=== PATIENT | male | born 1970 | race Caucasian/White ===

== ENCOUNTER 2020-11-03 15:26 | Inpatient (IN) | payer BC ==
[2020-11-03 17:51] LABS: Basophils % 0.8 % (0-1.3); Lymphocytes % 21.5 % (15.3-44.8); MPV 7.6 fL (7.6-11.3); RBC Red Blood Cell Count 4.55 M/uL (4.33-5.43)
[2020-11-03 18:15] LABS: Albumin 4.3 g/dL (3.4-5.0); Bilirubin Direct 0.1 mg/dL (0-0.2); Bilirubin Total 0.7 mg/dL (0.2-1.0); Potassium 4.2 mmol/L (3.5-5.1); Protein, Total 8.2 g/dL (6.4-8.2)
--- NOTE | 2020-11-03 18:52 | RAD REPORT ---
EXAM DESCRIPTION: CTAbdomen Pelvis W Contrast - 11/03/2020 6:41 pm CLINICAL HISTORY: Abdominal pain. ABD PAIN COMPARISON: No comparisons TECHNIQUE: Biphasic CT imaging of the abdomen and pelvis was performed with 100 ml non-ionic IV cont rast. All CT scans are performed using dose optimization technique as appropriate and may include automated exposure control or mA/KV adjustment according to patient size. FINDINGS: The lung bases are clear.Small hiatal hernia. The liver demonstrates diffuse fatty infiltration. The spleen, pancreas, adrenal glands and kidneys a re within normal limits. No bowel obstruction, free air, free fluid or abscess. There is a 4.5 x 3.0 cm umbilical hernia a loo p of small intestine. There is Mild fluid in the hernia sac. The appendix is normal. No evidence of significant lymphadenopathy. No suspicious bony findings. IMPRESSION: Umbilical hernia containing a loop of small intestine without bowel obstruction. There m ay be a component of incarceration present as slight fluid is present in the hernia sac. Diffuse fatty liver.
--- NOTE | 2020-11-03 19:37 | ER ---
Nurse's Notes [facility] Name: Howard Velasquez Age: 50 yrs Sex: Male : 1970 Arrival Date: 11/03/2020 Time: 15:27 Bed 24 Private MD: Diagnosis: Lower abdominal pain, unspecified Presentation: 11/03 16:04 Chief complaint: Patient states: right sided abd pian and nausea started 11 today, no iw vomiting or diarrhea, sharp constant pain, no urinary s/s. Coronavirus screen: At this time, the client does not indicate any symptoms associated with coronavirus-19. Ebola Screen: Patient negative for fever greater than or equal to 101.5 degrees Fahrenheit, and additional compatible Ebola Virus Disease symptoms Patient denies exposure to infectious person. Patient denies travel to an Ebola-affected area in the 21 days before illness onset. No symptoms or risks identified at this time. Initial Sepsis Screen: Does the patient meet any 2 criteria? No. Patient's initial sepsis screen is negative. Does the patient have a suspected source of infection? No. Patient's initial sepsis screen is negative. Risk Assessment: Do you want to hurt yourself or someone else? Patient reports no desire to harm self or others. Onset of symptoms was November 03, 2020. 16:04 Method Of Arrival: Ambulatory iw 16:04 Acuity: TAMARA 3 iw Historical: - Allergies: 16:06 No Known Allergies; iw - Home Meds: 16:06 Lisinopril Oral once daily [Active]; beta karen [Active]; unknown BP med [Active]; iw - PMHx: 16:06 Hypertension; Asthma; iw - PSHx: 16:06 None; iw - Immunization history:: Adult Immunizations not up to date. - Social history:: Smoking status: Patient denies any tobacco usage or history of. Screenin:44 Abuse screen: Denies threats or abuse. Nutritional screening: No deficits noted. tw2 Tuberculosis screening: No symptoms or risk factors identified. Fall Risk None identified. Assessment: 17:30 General: Appears comfortable, Behavior is calm, cooperative. Pain: Complains of pain in aa5 right lower quadrant Pain currently is 6 out of 10 on a pain scale. Quality of pain is described as sharp, Is continuous. Neuro: Level of Consciousness is awake, alert, obeys commands, Oriented to person, place, time, situation. Cardiovascular: Patient's skin is warm and dry. Respiratory: Airway is patent Respiratory effort is even, unlabored, Respiratory pattern is regular, symmetrical. GI: Abdomen is round non-distended, Bowel sounds present X 4 quads. Abdomen is tender to palpation in right lower quadrant Reports nausea, Patient currently denies diarrhea, vomiting. : No signs and/or symptoms were reported regarding the genitourinary system. EENT: No signs and/or symptoms were reported regarding the EENT system. Derm: Skin is pink, warm \T\ dry. Musculoskeletal: Range of motion: intact in all extremities. 17:45 Reassessment: Pt notified of wait time for CT scan. . aa5 18:40 Reassessment: Pt at CT . aa5 19:00 Reassessment: Patient appears in no apparent distress at this time. Patient and/or jb4 family updated on plan of care and expected duration. Pain level reassessed. Patient is alert, oriented x 3, equal unlabored respirations, skin warm/dry/pink. 20:00 Reassessment: Patient appears in no apparent distress at this time. Patient and/or jb4 family updated on plan of care and expected duration. Pain level reassessed. Patient is alert, oriented x 3, equal unlabored respirations, skin warm/dry/pink. 21:00 Reassessment: Patient appears in no apparent distress at this time. Patient and/or jb4 family updated on plan of care and expected duration. Pain level reassessed. Patient is alert, oriented x 3, equal unlabored respirations, skin warm/dry/pink. Pt admitted to ER hold. Vital Signs: 16:04 BP 133 / 88; Pulse 70; Resp 16; Temp 97.9; Pulse Ox 97% on R/A; Weight 115.67 kg; iw Height 5 ft. 8 in. (172.72 cm); Pain 6/10; 18:00 BP 139 / 82; Pulse 69; Resp 16 S; Pulse Ox 96% ; aa5 19:00 BP 125 / 85; Pulse 64; Resp 16; Pulse Ox 97% on R/A; jb4 20:00 BP 135 / 75; Pulse 66; Resp 18; Pulse Ox 95% on R/A; jb4 16:04 Body Mass Index 38.77 (115.67 kg, 172.72 cm) ED Course: 15:27 Patient arrived in ED. am2 16:06 Triage completed. iw 16:07 Arm band placed on. iw 16:56 Bed in low position. Call light in reach. Adult w/ patient. tw2 16:58 Haresh Bennett PA is PHCP. m 16:58 David Shaffer MD is Attending Physician. jmm 17:30 Patient has correct armband on for positive identification. Placed in gown. Bed in low aa5 position. Call light in reach. Adult w/ patient. 17:44 Inserted saline lock: 20 gauge in right antecubital area, using aseptic technique. tw2 Blood collected. 17:47 Saadia King, RN is Primary Nurse. aa5 18:41 CT Abd/Pelvis - IV Contrast Only In Process Unspecified. EDMS 19:00 Report given to Sebas Sanford RN. aa5 19:36 Darrell Mallory is Hospitalizing Provider. [facility] 21:00 No provider procedures requiring assistance completed. Patient admitted, IV remains in jb4 place. Administered Medications: 19:35 Drug: Cipro (ciprofloxacin) 400 mg Volume: 200 ml; Route: IVPB; Infused Over: 60 mins; jb4 Site: right antecubital; 20:35 Follow up: Response: No adverse reaction; IV Status: Completed infusion; IV Intake: jb4 200ml 19:35 Drug: Flagyl (metroNIDAZOLE) 500 mg Volume: 100 ml; Route: IVPB; Rate: 200 ml/hr; jb4 Infused Over: 30 mins; Site: right antecubital; 20:05 Follow up: Response: No adverse reaction; IV Status: Completed infusion; IV Intake: jb4 100ml Intake: 20:05 IV: 100ml; Total: 100ml. jb4 20:35 IV: 200ml; Total: 300ml. jb4 Outcome: 19:37 Decision to Hospitalize by Provider. [facility] 21:00 Admitted to ER Hold. Please see [facility] for further documentation. jb4 21:00 Condition: stable 21:00 Discharge instructions given to patient, Instructed on the need for admit, Demonstrated understanding of instructions. 11/04 15:27 Patient left the ED. aa5 Signatures: Dispatcher [employer] EDMS Haresh Bennett PA PA jmm Williams, Irene, RN RN iw Saadia King, RN RN aa5 Lucia Morales, RN RN tw2 Sebas Poe, RN RN jb4 Marcia Morales am2
--- NOTE | 2020-11-03 19:38 | EDPHYS ---
Physician Documentation [facility] Name: Howard Velasquez Age: 50 yrs Sex: Male : 1970 Arrival Date: 11/03/2020 Time: 15:27 Bed 24 Private MD: ED Physician David Shaffer HPI: 11/03 17:34 This 50 yrs old Male presents to ER via Ambulatory with complaints of jmm Abdominal Pain - RLQ. 17:34 The patient presents with abdominal pain. Onset: The symptoms/episode began/occurred jmm gradually, today. The symptoms do not radiate. Associated signs and symptoms: Pertinent positives: nausea. The symptoms are described as achy. Modifying factors: The symptoms are alleviated by nothing. This is a 50 year old male with no chronic medical conditions that presents to the ED with complaints of right lower abdominal pain beginning approximately 1130 today. Similar episode 2 weeks ago. Historical: - Allergies: 16:06 No Known Allergies; iw - Home Meds: 16:06 Lisinopril Oral once daily [Active]; beta karen [Active]; unknown BP med [Active]; iw - PMHx: 16:06 Hypertension; Asthma; iw - PSHx: 16:06 None; iw - Immunization history:: Adult Immunizations not up to date. - Social history:: Smoking status: Patient denies any tobacco usage or history of. ROS: 17:34 Constitutional: Negative for fever, chills, and weight loss, Cardiovascular: Negative jmm for chest pain, palpitations, and edema, Respiratory: Negative for shortness of breath, cough, wheezing, and pleuritic chest pain. 17:34 All other systems are negative. Exam: 17:34 Constitutional: This is a well developed, well nourished patient who is awake, alert, jmm and in no acute distress. Head/Face: atraumatic. Eyes: EOMI, no conjunctival erythema appreciated ENT: Moist Mucus Membranes Neck: Trachea midline, Supple Chest/axilla: Normal chest wall appearance and motion. Cardiovascular: Regular rate and rhythm. No edema appreciated Respiratory: Normal respirations, no respiratory distress appreciated 17:34 Skin: General appearance color normal MS/ Extremity: Moves all extremities, no obvious deformities appreciated, no edema noted to the lower extremities Neuro: Awake and alert, normal gait Psych: Behavior is normal, Mood is normal, Patient is cooperative and pleasant 17:34 Abdomen/GI: Inspection: abdomen appears normal, Bowel sounds: normal, Palpation: moderate abdominal tenderness, in the right lower quadrant. Vital Signs: 16:04 BP 133 / 88; Pulse 70; Resp 16; Temp 97.9; Pulse Ox 97% on R/A; Weight 115.67 kg; iw Height 5 ft. 8 in. (172.72 cm); Pain 6/10; 18:00 BP 139 / 82; Pulse 69; Resp 16 S; Pulse Ox 96% ; aa5 19:00 BP 125 / 85; Pulse 64; Resp 16; Pulse Ox 97% on R/A; jb4 20:00 BP 135 / 75; Pulse 66; Resp 18; Pulse Ox 95% on R/A; jb4 16:04 Body Mass Index 38.77 (115.67 kg, 172.72 cm) iw MDM: 17:29 Patient medically screened. [facility] 19:36 Data reviewed: vital signs, nurses notes. Counseling: I had a detailed discussion with venessa the patient and/or guardian regarding: the historical points, exam findings, and any diagnostic results supporting the discharge/admit diagnosis, lab results, radiology results, the need for outpatient follow up, to return to the emergency department if symptoms worsen or persist or if there are any questions or concerns that arise at home. ED course: I discussed the patient with Momo Barron PA-C whom accepted the patient to Dr. Mallory's service. . 11/03 17:34 Order name: Basic Metabolic Panel [facility] 11/03 17:34 Order name: CBC with Diff; Complete Time: 17:55 [facility] 11/03 17:34 Order name: Hepatic Function [facility] 11/03 17:34 Order name: Lipase [facility] 11/03 20:25 Order name: SARS-COV-2 RT PCR; Complete Time: 20:25 [facility] 11/03 21:24 Order name: T4 Free [facility] 11/03 21:24 Order name: Thyroid Stimulating Hormone [facility] 11/04 05:52 Order name: CBC with Automated Diff [facility] 11/04 06:21 Order name: Comprehensive Metabolic Panel [facility] 11/04 06:21 Order name: Phosphorus [facility] 11/04 06:21 Order name: Lipid Profile [facility] 11/04 06:21 Order name: Magnesium [facility] 11/04 06:54 Order name: Hemoglobin A1c [facility] 11/03 17:34 Order name: IV Saline Lock; Complete Time: 17:42 [facility] 11/03 17:34 Order name: Labs collected and sent; Complete Time: 17:42 [facility] 11/03 17:34 Order name: CT Abd/Pelvis - IV Contrast Only; Complete Time: 18:54 [facility] 11/03 19:51 Order name: CONS Physician Consult [facility] 11/04 06:56 Order name: Urinalysis [facility] Administered Medications: 19:35 Drug: Cipro (ciprofloxacin) 400 mg Volume: 200 ml; Route: IVPB; Infused Over: 60 mins; jb4 Site: right antecubital; 20:35 Follow up: Response: No adverse reaction; IV Status: Completed infusion; IV Intake: jb4 200ml 19:35 Drug: Flagyl (metroNIDAZOLE) 500 mg Volume: 100 ml; Route: IVPB; Rate: 200 ml/hr; jb4 Infused Over: 30 mins; Site: right antecubital; 20:05 Follow up: Response: No adverse reaction; IV Status: Completed infusion; IV Intake: jb4 100ml Disposition: 11/04 17:29 Co-signature as Attending Physician, David Shaffer MD. rn Disposition: 11/03/20 19:37 Hospitalization ordered by Darrell Mallory for Observation. Preliminary diagnosis is Lower abdominal pain, unspecified. - Bed requested for [facility] ER HOLD. - Status is Observation. aa5 - Condition is Stable. - Problem is new. - Symptoms are unchanged. Signatures: Dispatcher [employer] [facility] Haresh Bennett PA PA [facility] Desirae Guillen RN RN iw Nieto, Roman, MD MD rn Calderon, Audri, RN RN aa5 Tash Walker RN RN cg Bryson, James, RN RN jb4 Corrections: (The following items were deleted from the chart) 11/03 19:42 19:03 CORONAVIRUS+MR.LAB.BRZ ordered. [facility] 20:39 19:37 Hospitalization Ordered by Darrell Mallory for Observation. Preliminary diagnosis cg is Lower abdominal pain, unspecified. Bed requested for Telemetry/MedSurg (observation). Status is Observation. Condition is Stable. Problem is new. Symptoms are unchanged. [facility] 11/04 15:27 11/03 20:39 11/03/2020 19:37 Hospitalization Ordered by Darrell Mallory for Observation. aa5 Preliminary diagnosis is Lower abdominal pain, unspecified. Bed requested for [facility] ER HOLD. Status is Observation. Condition is Stable. Problem is new. Symptoms are unchanged. cg
[2020-11-03] MEDS ORDERED: CIPROFLOXACIN 400mg IV 400 MG/200 ML BAG IV ONE (19:45)
[2020-11-03] MEDS ORDERED: METRONIDAZOLE 500mg IVPB 500 MG/100 ML BAG IV ONE (19:45)
--- NOTE | 2020-11-03 20:01 | P.HP ---
Certification for Inpatient Patient admitted to: Inpatient With expected LOS: >2 Midnights Patient will require the following post-hospital care: None Practitioner: I am a practitioner with admitting privileges, knowledge of patient current condition, hospital course, and medical plan of care. Services: Services provided to patient in accordance with Admission requirements found in Title 42 Section 412.3 of the Code of Federal Regulations <Momo Barron - Last Filed: 11/03/20 19:56> Patient History Date of Service: 11/03/20 Primary Care Provider: Blair Reason for admission: umbilical hernia History of Present Illness: Mr. Velasquez is a 50 yo male with HTN and asthma here today for 9/10 umbilical abdominal pain beginning this morning. Pain is now tolerable. He says he initially had this pain 3 weeks ago but it went away after a few hours. Pain is worse with drinking water. He reports nausea, belching. Denies vomiting, constipation. WBC 14. CT shows umbilical hernia containing a loop of small intestine without bowel obstruction, there may be a component of incarceration present as slight fluid is present in the hernia sac, diffuse fatty liver. - Past Medical/Surgical History Has patient received pneumonia vaccine in the past: No Diabetic: No -: HTN -: asthma Past Surgical History: Patient denies surgical history - Family History Mother -: Diabetes, Kidney disease Father -: Hypertension - Social History Smoking Status: Never smoker Alcohol use: No CD- Drugs: No Caffeine use: No Place of Residence: Home <Momo Barron - Last Filed: 11/03/20 19:56> Date of Service: 11/04/20 <jorge mitchell - Last Filed: 11/04/20 12:09> Review of Systems General: Unremarkable Eyes: Unremarkable ENT: Unremarkable Respiratory: Unremarkable Cardiovascular: Unremarkable Gastrointestinal: Nausea, Abdominal Pain, As per HPI Genitourinary: Unremarkable Musculoskeletal: Unremarkable Integumentary: Unremarkable Neurological: Unremarkable Lymphatics: Unremarkable <Momo Barron - Last Filed: 11/03/20 19:56> Physical Examination - Physical Exam General: Alert, In no apparent distress, Oriented x3, Cooperative HEENT: Atraumatic, Normocephalic, PERRLA, Mucous membr. moist/pink, EOMI, Sclerae nonicteric Neck: Supple, 2+ carotid pulse no bruit, JVD not distended, No Thyromegaly, No LAD Respiratory: Clear to auscultation bilaterally, Normal air movement Cardiovascular: No edema, Normal pulses, Regular rate/rhythm, Normal S1 S2, No gallops, No rubs, No murmurs Capillary refill: <2 Seconds Gastrointestinal: Normal bowel sounds, Soft and benign, Non-distended, No ascites, No rebound, No guarding, Other (mild tenderness to palpation, hernia is reducible), Tenderness Musculoskeletal: No clubbing, No swelling, No contractures, No erythema, No tenderness, No warmth Integumentary: No rashes, No breakdown, No significant lesion, No tenderness/swelling, No warmth, No cyanosis, Erythema Neurological: Normal gait, Normal speech, Normal strength at 5/5 x4 extr, Normal tone, Sensation intact, Cranial nerves 3-12 intact, Normal affect Lymphatics: No axilla or inguinal lymphadenopathy - Studies Laboratory Data (last 24 hrs) 11/03/20 17:42: WBC 14.00 H, Hgb 13.9, Hct 41.0, Plt Count 273 11/03/20 17:42: Sodium 141, Potassium 4.2, BUN 21 H, Creatinine 0.92, Glucose 125 H, Total Bilirubin 0.7, AST 26, ALT 55, Alkaline Phosphatase 82, Lipase 126 <Momo Barron - Last Filed: 11/03/20 19:56> - Studies Laboratory Data (last 24 hrs) 11/03/20 17:42: WBC 14.00 H, Hgb 13.9, Hct 41.0, Plt Count 273 11/03/20 17:42: Sodium 141, Potassium 4.2, BUN 21 H, Creatinine 0.92, Glucose 125 H, Total Bilirubin 0.7, AST 26, ALT 55, Alkaline Phosphatase 82, Lipase 126 <jorge mitchell - Last Filed: 11/04/20 12:09> Assessment and Plan - Problems (Diagnosis) (1) Hypertension Current Visit: Yes Status: Chronic Qualifiers: Hypertension type: essential hypertension Qualified Code(s): I10 - Essential (primary) hypertension (2) Asthma Current Visit: Yes Status: Chronic Qualifiers: Asthma severity: unspecified severity Asthma persistence: unspecified Asthma complication type: uncomplicated Qualified Code(s): J45.909 - Unsp ecified asthma, uncomplicated (3) Umbilical hernia Current Visit: Yes Status: Acute Qualifiers: Obstruction and gangrene presence: without obstruction or gangrene Qualified Code(s): K42.9 - Umbilical hernia without obstruction or gangrene - Plan surgery consulted, NPO, continue with cipro and flagyl blood pressure currently well controlled, will continue to monitor morphine and zofran PRN lipid panel, A1c pending albuterol inhaler PRN Discharge Plan: Home Plan to discharge in: 48 Hours - Advance Directives Does patient have a Living Will: No Does patient have a Durable POA for Healthcare: No - Code Status/Comfort Care Code Status Assessed: Yes (full code) Critical Care: No Time Spent Managing Pts Care (In Minutes): 70 <Momo Barron - Last Filed: 11/03/20 19:56> Physician Review: Patient Assessed, Agree with Above Assessment and Plan Physician Review Additional Text: Incarcerated umbilical hernia. Plan: General surgery consult. Supportive measures with-antiemetics and pain medications. <jorge mitchell - Last Filed: 11/04/20 12:09>
[2020-11-03] MEDS ORDERED: ALBUTEROL INHALER 60 PUFF/8 GM IH PRN (20:48)
[2020-11-03] MEDS ORDERED: MORPHINE 2 MG/ML SYR IV PRN (20:48)
[2020-11-03] MEDS ORDERED: ONDANSETRON 4 MG/2 ML VIAL IV PRN (20:48)
[2020-11-03] MEDS ORDERED: ACETAMINOPHEN 500 MG TAB PO PRN (20:48)
[2020-11-03 21:23] LABS: Thyroid Stimulating Hormone 1.75 uIU/mL (0.360-3.740)
[2020-11-03 21:44] VITALS: BMI 38.0
[2020-11-04] MEDS ORDERED: METRONIDAZOLE 500mg IVPB 500 MG/100 ML BAG IV SCH (01:00)
[2020-11-04] MEDS ORDERED: METRONIDAZOLE 500mg IVPB 0 MG/0 ML BAG IV ONE (03:28)
[2020-11-04 05:48] LABS: Basophils % 0.4 % (0-1.3); Hematocrit 39.1 % (39.6-49.0); Lymphocytes % 37.7 % (15.3-44.8); MPV 8.1 fL (7.6-11.3); RBC Red Blood Cell Count 4.31 M/uL (4.33-5.43)
[2020-11-04 06:20] LABS: ALT/SGPT 52 U/L (12-78); AST/SGOT 24 U/L (15-37); Albumin 3.7 g/dL (3.4-5.0); Alkaline Phosphatase 72 U/L (45-117); BUN Blood Urea Nitrogen 19 mg/dL (7-18); Bicarbonate 30 mmol/L (21-32); Bilirubin Total 1.1 mg/dL (0.2-1.0); Glucose Level 116 mg/dL (74-106); HDL Cholesterol 32 mg/dL (40-60); LDL Cholesterol, Calculated 110 (<130); Magnesium 2.4 mg/dL (1.8-2.4); Phosphorus 3.2 mg/dL (2.5-4.9); Protein, Total 7.4 g/dL (6.4-8.2); Sodium Level 140 mmol/L (136-145)
[2020-11-04 06:55] LABS: Urine Appearance CLEAR (Clear); Urine Bilirubin NEGATIVE (Negative); Urine Blood NEGATIVE (Negative); Urine Color YELLOW (Yellow); Urine Glucose NEGATIVE (Negative); Urine Protein NEGATIVE (Negative); Urine Specific Gravity >=1.030 (1.005-1.030); Urine pH 6.5 (5.0-7.0)
[2020-11-04 06:56] LABS: Urine Microscopic Reflex NO UMIC
[2020-11-04] MEDS ORDERED: CIPROFLOXACIN 400mg IV 400 MG/200 ML BAG IV SCH (09:00)
[2020-11-04] MEDS ORDERED: CIPROFLOXACIN 400mg IV 400 MG/200 ML BAG IV ONE (09:03)
[2020-11-04] MEDS ORDERED: METRONIDAZOLE 500mg IVPB 500 MG/100 ML BAG IV ONE (09:03)
[2020-11-04] MEDS ORDERED: Ringers Lactate 1,000 ML IV ONE ×2 (09:19→10:56)
[2020-11-04] MEDS ORDERED: ACETAMINOPHEN 500 MG TAB ONE (09:43)
[2020-11-04] MEDS ORDERED: MIDAZOLAM HCL 2 MG/2 ML INJ ONE ×2 (09:51→11:30)
[2020-11-04] MEDS ORDERED: propofoL 200 MG/20 ML VIAL IV ONE (09:51)
[2020-11-04] MEDS ORDERED: FENTANYL CITR 100 MCG/2 ML ONE (09:51)
[2020-11-04] MEDS ORDERED: LIDOCAINE 1% MPF 5 ML VIAL ONE (09:51)
[2020-11-04] MEDS ORDERED: ROCURONIUM 50 MG/5 ML VIAL IV ONE (09:52)
[2020-11-04] MEDS ORDERED: CELECOXIB 100 MG CAPSULE ONE (09:54)
[2020-11-04] MEDS: METRONIDAZOLE 500mg IVPB 500 MG/100 ML BAG IV ONE ×2 (10:09→10:10)
[2020-11-04] MEDS ORDERED: SUCCINYLCHOLINE 20 MG/ML (10 ML) IV ONE (10:17)
[2020-11-04] MEDS ORDERED: NALOXONE 0.4 MG/ML VIAL ONE ×2 (11:08)
--- NOTE | 2020-11-04 11:44 | CON ---
Date of Consultation: 11/04/2020 Reason For Service: Incarcerated umbilical hernia. History Of Present Illness: This is the case of a 50-year-old patient, who comes to us overnight to the hospital with abdominal pain associated with nausea, vomiting. The patient had a CAT scan done s hows incarcerated hernia with small bowel and surgical consult was obtained for repair. He says he h as the episodes similar to this about 3 weeks ago, but it resolved on its own. He was able to push i t back. He denies any dysuria, hematuria, hematochezia, melena. He denies any recent traveling out of the country. He denies any family member sick at home. He was advised the importance of no heavy lifting and also losing weight. Past Surgical History: None. Past Medical History: Includes hypertension, asthma, and obesity. Family History: Includes diabetes and hypertension. Social History: He does not smoke. He does not drink alcohol. Review of Systems: No hematochezia, no melena as above. See H and P. Ten points otherwise unremarkable. Physical Examination: General: The patient is awake, alert. HEENT: Pupils are equal and reactive. Anicteric. Neck: Supple. Chest: Clear. Heart: S1, S2. Abdomen: Soft and depressible. There is an incarcerated umbilical hernia present. Mild tenderness to palpation. No guarding or rebound. Extremities: Good capillary refill. Laboratory Data: Blood work shows WBC count of 13. CAT scan of the abdomen and pelvis interpreted virgilio Mujica as umbilical hernia containing small bowel intestines, hernia fluid around the area with e storm, and incarceration of small bowel. The patient also has a hiatal hernia. Assessment: This is a 50-year-old patient with incarcerated umbilical hernia with small bowel and te nderness. There is the inflammation over the area, so we will repair this hernia, possible bowel res ection, possible mesh with benefits, alternatives, and risks including, but not limited to infection, bleeding, damage to adjacent structures, anesthesia complication, recurrence, TX, and even . Yara rodriguez also understands this may not relieve any symptoms. He might need more than one surgical intervent ion. He understood, signed a consent. He also was explained the importance of no heavy lifting in t he future. If the intestines are viable, we will skip it. If the intestines are nonviable, then we might have to do a bowel resection. He understood. The patient was immediately booked in OR. ROBERT/ORMINA Voice ID: [id number] Report ID: [id number]
[2020-11-04] MEDS ORDERED: dexAMETHasone 10 MG/ML VIAL ONE (11:48)
[2020-11-04] MEDS ORDERED: KETOROLAC 30 MG/ML INJ ONE (11:48)
[2020-11-04] MEDS ORDERED: ONDANSETRON 4 MG/2 ML VIAL ONE (11:48)
[2020-11-04] MEDS ORDERED: NA CHLORIDE 0.9% 50 ML ONE (11:49)
--- NOTE | 2020-11-04 12:05 | DS ---
Diagnosis: Incarcerated umbilical hernia. Procedure: Open repair of incarcerated umbilical hernia. Disposition: Home. Discharge Instructions: Activity as tolerated. No heavy lifting. Plan: Follow up in my office in 1 week. Call for appointment [phone]. Keep area dry for 48 hours, then may shower. Medications: Include Tylenol No. 3 q.4 hours p.r.n. pain, Bactrim DS p.o. b.i.d. ROBERT/ROMINA Voice ID: [id number] Report ID: [id number]
--- NOTE | 2020-11-04 12:15 | P.DS ---
Admission Date: 11/03/20 Discharge Date: 11/04/20 Primary Care Provider: Blair Disposition: ROUTINE DISCHARGE Discharge Condition: GOOD Reason for Admission: umbilical hernia Consultations: General Surgery - Problems (1) Umbilical hernia Current Visit: Yes Status: Acute Qualifiers: Obstruction and gangrene presence: without obstruction or gangrene Qualified Code(s): K42.9 - Umbilical hernia without obstruction or gangrene (2) Asthma Current Visit: Yes Status: Chronic Qualifiers: Asthma severity: unspecified severity Asthma persistence: unspecified Asthma complication type: uncomplicated Qualified Code(s): J45.909 - Unspecified asthma, uncomplicated (3) Hypertension Current Visit: Yes Status: Chronic Qualifiers: Hypertension type: essential hypertension Qualified Code(s): I10 - Essential (primary) hypertension Brief History of Present Illness: 50-year-old gentleman with a history of hypertension, umbilical hernia and a sthma presented to the emergency department with a complaint of abdominal pain of 2 weeks duration which became worse on the morning of admission. Patient presented to the emergency department where a CT abdomen and pelvis done showed umbilical hernia with possible incarceration. General surgery was consulted to evaluate the patient hospitalized for further management. Hospital Course: Patient was seen by Dr. Kee who performed hernia repair. Surgery was uneventful. Patient currently has no symptoms. He is deemed stable for discharge per surgery. Vital Signs/Physical Exam: Temp Pulse Resp BP Pulse Ox 97.4 F 77 18 115/70 97 11/04/20 11:49 11/04/20 11:59 11/04/20 11:59 11/04/20 11:59 11/04/20 08:00 General: Alert, In no apparent distress HEENT: Mucous membr. moist/pink Neck: Supple, JVD not distended Respiratory: Clear to auscultation bilaterally, Normal air movement Cardiovascular: No edema, Regular rate/rhythm, Normal S1 S2 Gastrointestinal: Normal bowel sounds, Soft and benign, Non-distended Musculoskeletal: No swelling Integumentary: No rashes Laboratory Data at Discharge: WBC 13.30 K/uL (4.3-10.9) H 11/04/20 04:48 Hgb 13.3 g/dL (13.6-17.9) L 11/04/20 04:48 Hct 39.1 % (39.6-49.0) L 11/04/20 04:48 Plt Count 267 K/uL (152-406) 11/04/20 04:48 Sodium 140 mmol/L (136-145) 11/04/20 04:48 Potassium 4.0 mmol/L (3.5-5.1) 11/04/20 04:48 BUN 19 mg/dL (7-18) H 11/04/20 04:48 Creatinine 0.81 mg/dL (0.55-1.3) 11/04/20 04:48 Glucose 116 mg/dL (74-106) H 11/04/20 04:48 Phosphorus 3.2 mg/dL (2.5-4.9) 11/04/20 04:48 Magnesium 2.4 mg/dL (1.8-2.4) 11/04/20 04:48 Total Bilirubin 1.1 mg/dL (0.2-1.0) H 11/04/20 04:48 AST 24 U/L (15-37) 11/04/20 04:48 ALT 52 U/L (12-78) 11/04/20 04:48 Alkaline Phosphatase 72 U/L (45-117) 11/04/20 04:48 Triglycerides 259 mg/dL (<150) H 11/04/20 04:48 Cholesterol 194 mg/dL (<200) 11/04/20 04:48 HDL Cholesterol 32 mg/dL (40-60) L 11/04/20 04:48 Cholesterol/HDL Ratio 6.06 11/04/20 04:48 Lipase 126 U/L (73-393) 11/03/20 17:42 Home Medications: Codeine/APAP [Tylenol W/Codeine #3 tab] 1 tab PO Q4HP PRN #30 tab 11/04/20 Sulfamethoxazole/Trimethoprim [Bactrim Ds Tablet] 1 each PO BID #10 tablet 11/04/20 New Medications: Codeine/APAP [Tylenol W/Codeine #3 tab] 1 tab PO Q4HP PRN #30 tab PRN Reason: Pain Sulfamethoxazole/Trimethoprim [Bactrim Ds Tablet] 1 each PO BID #10 tablet Physician Discharge Instructions: Keep area dry and intact until next doctor visit. Diet: AHA Activity: No lifting more than 10 lbs Followup: OOT,OOT [Primary Care Provider] -
--- NOTE | 2020-11-04 12:26 | OP ---
Date of Procedure: 11/04/2020 Surgeon: Daryl Kee MD Reason For Service: Incarcerated umbilical hernia. Preoperative Diagnosis: Incarcerated umbilical hernia with small bowel. Postoperative Diagnosis: Incarcerated umbilical hernia with small bowel. Procedure Performed: Open repair of incarcerated umbilical hernia. Anesthesia: General plus local. Findings: Viable tissue in the hernia, viable small bowel in the hernia. Indication: This is the case of a 50-year-old patient, who comes to the ER with abdominal pain, tend er umbilical hernia, diagnosed with incarcerated umbilical hernia with small bowel on it. The patien t was booked for repair of umbilical hernia with benefits, alternatives, and risks including, but not limited to infection, bleeding, damage to adjacent structures, anesthesia complication, recurrence, WI, and even . He also understands this may not relieve any symptoms. He might need more than one surgical intervention. He also understands that he may require bowel resection. He understood, signed a consent. Procedure In Detail: The patient was brought to the operating room, placed in supine position. Anes thesia was done without complication. A time-out was called. Abdomen was prepped and draped in a st erile fashion. Supraumbilical incision was made. Incision was carried down until we found the herni a sac. The hernia sac was then held together and we opened the hernia sac and noticed to having enrico l that looks viable and also omentum looks viable. After fully inspecting and making sure it is viab le and making sure it is moving, we proceeded to reduce that into the abdominal cavity. Hernia sac w as removed. Fascial edges were clean and we proceeded to close the defects with [id number] fash ion with #1 Prolene multiple times. The area was irrigated. Subcutaneous tissue was closed __ skin and Steri-Strips on top. Sponge count and instrument counts were correct. The patient reina ated the procedure well. The patient was sent to recovery in stable condition. ROBERT/MODL Voice ID: [id number] Report ID: [id number]
[2020-11-04 12:47] VITALS: BP 111/59; TEMP 97.1; O2SAT 94
== END 2020-11-04 13:00 | disposition home or self-care (01) | DRG 355 ==
LOC: ER 15:26 → ERHOLD 19:50
PROVIDERS: ADMIT Internal Medicine; ATTEND Internal Medicine
PROC: 0WQF0ZZ Repair Abdominal Wall, Open Approach (ICD-10-PCS; principal; 2020-11-04 11:45)
DX: K42.0 Umbilical hernia with obstruction, without gangrene (principal); I10 Essential (primary) hypertension; J45.909 Unspecified asthma, uncomplicated; Z79.899 Other long term (current) drug therapy; Z20.822 Contact with and (suspected) exposure to COVID-19
CPT/HCPCS: 36415; 74177; 80048; 80053; 80061; 80076; 81003; 83036; 83690; 83735; 84100; 84439; 84443; 85025; 88302; 88304; 96365; 96368; 99285; J0330; J0744; J1100; J2250; J2310; J2405; J2704; J3010; J7120; Q9967; U0003